=== PATIENT | female | born 1965 | race Caucasian/White ===

== ENCOUNTER 2021-02-04 18:00 | Inpatient (IN) | payer BC ==
[~2021-02-04] VITALS: Ht 149.9 cm; Wt 59.3 kg
[2021-02-04 18:46] LABS: BASOPHILS # (AUTO) 0.1 X10'3 (0-0.2); BASOPHILS % (AUTO) 1.3 % (0-1); EOSINOPHILS # (AUTO) 0.1 X10'3 (0-0.9); HEMATOCRIT 22.7 % (35.0-45.0); HEMOGLOBIN 7.3 g/dl (12.0-16.0); MEAN CORPUSCULAR HEMOGLOBIN 26.4 PG (27.0-31.0); MEAN CORPUSCULAR HGB CONC 32.2 g/dL (33.0-36.5); MEAN CORPUSCULAR VOLUME 82.1 FL (78-98); MEAN PLATELET VOLUME 6.4 FL (7.4-10.4); MONOCYTES # (AUTO) 0.7 X10'3 (0-0.9); MONOCYTES % (AUTO) 8.1 % (2-12); NEUTROPHILS # (AUTO) 6.7 X10'3 (1.8-7.7); NEUTROPHILS % (AUTO) 77.6 % (42-75); PLATELET COUNT 403 X10'3 (140-440); RED BLOOD COUNT 2.77 X10'6 (4.20-5.60); RED CELL DISTRIBUTION WIDTH 19.3 % (11.5-14.5); WHITE BLOOD COUNT 8.6 X10'3 (4.5-11.0)
[2021-02-04 19:03] LABS: ALANINE AMINOTRANSFERASE 13 U/L (12-78); ALBUMIN 2.3 G/DL (3.4-5.0); ALBUMIN/GLOBULIN RATIO 0.6 (1.1-1.5); ALKALINE PHOSPHATASE 91 IU/L (46-116); ANION GAP 15 (8-16); ASPARTATE AMINO TRANSFERASE 17 U/L (10-37); BILIRUBIN,TOTAL 0.5 MG/DL (0.1-1.0); BLOOD UREA NITROGEN 34 MG/DL (7-18); BUN/CREATININE RATIO 11.8 (6.6-38.0); CALCIUM 8.4 MG/DL (8.5-10.1); CHLORIDE 108 MMOL/L (99-107); CREATININE 2.88 MG/DL (0.40-0.90); GLUCOSE 97 MG/DL (70-104); POTASSIUM 3.5 MMOL/L (3.5-5.1); SODIUM 141 MMOL/L (135-145); TOTAL CARBON DIOXIDE 18.4 MMOL/L (24-32); TOTAL PROTEIN 6.3 G/DL (6.4-8.2); eGFR 17 ML/MIN
[2021-02-04] MEDS ORDERED: nitroGLYCERIN-Tridil 50MG/D5W 250 ML IV ONE (19:05)
[2021-02-04 19:11] LABS: ANISOCYTOSIS 2+; HYPOCHROMASIA 1+; PLATELET ESTIMATE NORMAL
[2021-02-04] MEDS ORDERED: magnesium 2GM in 50ml NS 50 ML IV PRN (19:20)
[2021-02-04] MEDS ORDERED: potassium Cl 20 mEq SR tablet PO PRN ×2 (19:20)
[2021-02-04] MEDS ORDERED: magnesium 4gm in 100ml NS 100 ML IV PRN (19:20)
[2021-02-04] MEDS ORDERED: magnesium Cl slow-release 64mg tablet PO PRN (19:20)
[2021-02-04] MEDS ORDERED: mag hydrox/Alum hydrox/simeth 30ml oral suspension PO PRN (19:20)
[2021-02-04] MEDS ORDERED: magnesium hydroxide 30ml (MOM) UD suspension PO PRN (19:20)
[2021-02-04] MEDS ORDERED: acetaminophen 325mg tablet PO PRN (19:20)
[2021-02-04] MEDS ORDERED: morphine 2 MG/ML inj. syringe IV PRN (19:20)
[2021-02-04] MEDS ORDERED: potassium Cl 40MEQ/1/2NS 520ml 520 ML IV PRN ×2 (19:20)
[2021-02-04] MEDS ORDERED: CARV25TA2 PO (19:54)
[2021-02-04] MEDS ORDERED: METO5TAB7 PO (19:54)
[2021-02-04] MEDS ORDERED: MECL-159 PO (19:54)
[2021-02-04] MEDS ORDERED: HYDR100T27 PO (19:54)
[2021-02-04] MEDS ORDERED: ISOS120T13 PO (19:54)
[2021-02-04] MEDS ORDERED: BUPR100T7 PO (19:54)
[2021-02-04] MEDS ORDERED: CYCL-1 PO (19:54)
[2021-02-04] MEDS ORDERED: ATOR10TA70 PO (19:54)
[2021-02-04] MEDS ORDERED: LISI10TA27 PO (19:54)
[2021-02-04] MEDS ORDERED: BUPR300T86 PO (19:54)
[2021-02-04] MEDS: K and/or MAG REPLACEMENT MC SCH (19:56)
[2021-02-04 21:00] VITALS: BP 193/115
--- NOTE | 2021-02-04 21:00 | NUR ---
Received pt from ER, oriented to room, call light and floor procedures. Blood pressure elevated, all other vitals WNL. Room air RR 20. Afebrile and able to ambulate from gurney to bed.
[2021-02-04 22:00] VITALS: BP 181/108
[2021-02-04] MEDS: hydrALAZINE 20mg/ml inj. IV PRN (22:15)
[2021-02-04] MEDS ORDERED: furosemide inj 100 MG in normal saline 100ml IV soln 90 ML IV SCH (23:40)
[2021-02-05] VITALS (9 sets, daily range): BP systolic 181–196; BP diastolic 17–127
[2021-02-05] MEDS ORDERED: furosemide inj 100 MG in normal saline 100ml IV soln 90 ML IV SCH (00:54)
[2021-02-05 01:53] LABS: BASOPHILS # (AUTO) 0.1 X10'3 (0-0.2); EOSINOPHILS # (AUTO) 0.1 X10'3 (0-0.9); EOSINOPHILS % (AUTO) 1.1 % (0-6); HEMOGLOBIN 7.2 g/dl (12.0-16.0); LYMPHOCYTES # (AUTO) 0.8 X10'3 (1.1-4.8); LYMPHOCYTES % (AUTO) 9.4 % (21-51); MEAN CORPUSCULAR HEMOGLOBIN 26.8 PG (27.0-31.0); MEAN CORPUSCULAR HGB CONC 32.5 g/dL (33.0-36.5); MEAN CORPUSCULAR VOLUME 82.4 FL (78-98); MEAN PLATELET VOLUME 6.5 FL (7.4-10.4); MONOCYTES # (AUTO) 0.5 X10'3 (0-0.9); MONOCYTES % (AUTO) 6.2 % (2-12); NEUTROPHILS # (AUTO) 7.2 X10'3 (1.8-7.7); NEUTROPHILS % (AUTO) 82.3 % (42-75); PLATELET COUNT 373 X10'3 (140-440); RED BLOOD COUNT 2.67 X10'6 (4.20-5.60); WHITE BLOOD COUNT 8.7 X10'3 (4.5-11.0)
[2021-02-05 02:04] LABS: ALBUMIN 2.2 G/DL (3.4-5.0); ALBUMIN/GLOBULIN RATIO 0.6 (1.1-1.5); ANION GAP 11 (8-16); ASPARTATE AMINO TRANSFERASE 20 U/L (10-37); BILIRUBIN,TOTAL 0.4 MG/DL (0.1-1.0); BLOOD UREA NITROGEN 36 MG/DL (7-18); BUN/CREATININE RATIO 12.2 (6.6-38.0); CALCIUM 8.2 MG/DL (8.5-10.1); CHLORIDE 108 MMOL/L (99-107); CREATININE 2.96 MG/DL (0.40-0.90); GLUCOSE 223 MG/DL (70-104); MAGNESIUM 2.3 MG/DL (1.5-2.4); POTASSIUM 3.6 MMOL/L (3.5-5.1); SODIUM 140 MMOL/L (135-145); TOTAL CARBON DIOXIDE 20.9 MMOL/L (24-32); TOTAL PROTEIN 6.1 G/DL (6.4-8.2); eGFR 16 ML/MIN
[2021-02-05 02:05] LABS: ALANINE AMINOTRANSFERASE 14 U/L (12-78); ALKALINE PHOSPHATASE 89 IU/L (46-116)
--- NOTE | 2021-02-05 02:09 | NUR ---
notified PAGER ID: [phone] MESSAGE: [phone] admit to [facility] @8565 pt c/o vertigo dizziness takes 25mg PO TID prn Meclizine at home. She is requesting to have it here please? H&H 7.2 & 22 Emiliano [id number]
[2021-02-05] MEDS: meclizine 12.5mg tablet PO PRN ×2 (02:21→12:03)
[2021-02-05] MEDS: hydrALAZINE 20mg/ml inj. IV PRN ×3 (05:32→17:45)
--- NOTE | 2021-02-05 06:15 | NUR ---
Patient in room PCU 3027. I have received report from MANDA Cummings and had the opportunity to ask questions and assume patient care.
--- NOTE | 2021-02-05 06:20 | NUR ---
Problems reprioritized. Patient report given, questions answered & plan of care reviewed with Deidra HOLMAN.
--- NOTE | 2021-02-05 06:37 | NUR ---
Patient in room PCU 3027. I have received report from German HOLMAN and had the opportunity to ask questions and assume patient care.
[2021-02-05 07:24] LABS: HEMATOCRIT 24.2 % (35.0-45.0); HEMOGLOBIN 7.6 g/dl (12.0-16.0); MEAN CORPUSCULAR HEMOGLOBIN 26.5 PG (27.0-31.0); MEAN CORPUSCULAR HGB CONC 31.6 g/dL (33.0-36.5); MEAN CORPUSCULAR VOLUME 83.7 FL (78-98); MEAN PLATELET VOLUME 6.5 FL (7.4-10.4); PLATELET COUNT 431 X10'3 (140-440); RED BLOOD COUNT 2.89 X10'6 (4.20-5.60); RED CELL DISTRIBUTION WIDTH 19.8 % (11.5-14.5); WHITE BLOOD COUNT 8.9 X10'3 (4.5-11.0)
[2021-02-05] MEDS: buPROPion SR 150mg tablet PO SCH ×2 (07:55→20:05)
[2021-02-05] MEDS: isosorbide mononitrate 30mg tab.SR.24H PO SCH ×2 (07:56→20:05)
[2021-02-05] MEDS: atorvastatin 10mg tablet PO SCH (07:56)
[2021-02-05] MEDS: K and/or MAG REPLACEMENT MC SCH ×2 (08:00→20:00)
--- NOTE | 2021-02-05 08:01 | NUR ---
PAGER ID: [phone] MESSAGE: Pt Cheryl Lugo needs her home BP meds put on LAWRENCE, her BP 192/127, had hydralazine at 0530, can't give until 1130. No other meds on board. Pls advise, Deidra CASH
[2021-02-05] MEDS ORDERED: hyDRALAzine 10mg tablet PO SCH (08:20)
[2021-02-05] MEDS ORDERED: hydrALAZINE 20mg/ml inj. IV ONE (08:20)
[2021-02-05] MEDS: lisinopril 10 MG tablet PO SCH (08:20)
--- NOTE | 2021-02-05 08:21 | NUR ---
New orders from Dr. Azul to resart home BP meds
[2021-02-05 08:45] LABS: OCCULT BLOOD STOOL NEGATIVE (Neg)
[2021-02-05] MEDS: hydrALAZINE 25 MG tablet PO SCH ×2 (13:00→20:05)
[2021-02-05 13:24] LABS: TOTAL PROTEIN,URINE RANDOM 644.4 MG/DL
[2021-02-05] MEDS: ondansetron/PF 4mg/2ml inj IV PRN (15:08)
--- NOTE | 2021-02-05 15:15 | NUR ---
MESSAGE: Pt Cheryl Lugo 2386A BP is not going down with hydralazine, sustaining high, latest 187/111, HR 110. Should we try a clonidine push? Pls advise, Deidra CASH
--- NOTE | 2021-02-05 16:05 | NUR ---
Discovered pump for Lasix drip was set to wrong concentration in drug library, resulting in patient receiving 1 ml/hr instead of 10 ml/hr. Fixed the rate on pump, contacted pharmacist to inform, and reported to charge nurse. Will continue to monitor.
[2021-02-05] MEDS ORDERED: amLODIPine 5mg tablet PO ONE (16:15)
--- NOTE | 2021-02-05 18:08 | NUR ---
Problems reprioritized. Patient report given, questions answered & plan of care reviewed with MANDA Porter. Patient stable at time of transfer.
--- NOTE | 2021-02-05 18:08 | NUR ---
Problems reprioritized. Patient report given, questions answered & plan of care reviewed with Emiliano HOLMAN.
[2021-02-05 18:14] LABS: ALBUMIN 2.3 G/DL (3.4-5.0); ANION GAP 12 (8-16); BLOOD UREA NITROGEN 39 MG/DL (7-18); BUN/CREATININE RATIO 13.2 (6.6-38.0); CALCIUM 8.5 MG/DL (8.5-10.1); CHLORIDE 107 MMOL/L (99-107); CREATININE 2.95 MG/DL (0.40-0.90); GLUCOSE 135 MG/DL (70-104); SODIUM 140 MMOL/L (135-145); TOTAL CARBON DIOXIDE 21.5 MMOL/L (24-32); eGFR 17 ML/MIN
[2021-02-05 18:45] LABS: PHOSPHORUS 5.7 MG/DL (2.3-4.5)
[2021-02-06] VITALS (13 sets, daily range): BP systolic 144–181; BP diastolic 94–117
[2021-02-06 01:46] LABS: BASOPHILS # (AUTO) 0.1 X10'3 (0-0.2); BASOPHILS % (AUTO) 0.9 % (0-1); EOSINOPHILS # (AUTO) 0.1 X10'3 (0-0.9); EOSINOPHILS % (AUTO) 1.3 % (0-6); LYMPHOCYTES % (AUTO) 10.4 % (21-51); MEAN CORPUSCULAR HGB CONC 33.4 g/dL (33.0-36.5); MEAN CORPUSCULAR VOLUME 80.9 FL (78-98); MEAN PLATELET VOLUME 6.2 FL (7.4-10.4); MONOCYTES # (AUTO) 0.8 X10'3 (0-0.9); MONOCYTES % (AUTO) 8.9 % (2-12); NEUTROPHILS # (AUTO) 7.3 X10'3 (1.8-7.7); NEUTROPHILS % (AUTO) 78.5 % (42-75); PLATELET COUNT 348 X10'3 (140-440); RED BLOOD COUNT 2.54 X10'6 (4.20-5.60); RED CELL DISTRIBUTION WIDTH 19.3 % (11.5-14.5); WHITE BLOOD COUNT 9.2 X10'3 (4.5-11.0)
[2021-02-06 01:55] LABS: HEMATOCRIT 20.5 % (35.0-45.0); HEMOGLOBIN 6.9 g/dl (12.0-16.0)
[2021-02-06 01:58] LABS: ALANINE AMINOTRANSFERASE 17 U/L (12-78); ALBUMIN 2.1 G/DL (3.4-5.0); ALBUMIN/GLOBULIN RATIO 0.5 (1.1-1.5); ALKALINE PHOSPHATASE 79 IU/L (46-116); ANION GAP 13 (8-16); ASPARTATE AMINO TRANSFERASE 13 U/L (10-37); BILIRUBIN,TOTAL 0.3 MG/DL (0.1-1.0); BLOOD UREA NITROGEN 39 MG/DL (7-18); BUN/CREATININE RATIO 11.7 (6.6-38.0); CALCIUM 8.1 MG/DL (8.5-10.1); CHLORIDE 106 MMOL/L (99-107); CREATININE 3.33 MG/DL (0.40-0.90); GLUCOSE 128 MG/DL (70-104); MAGNESIUM 2.1 MG/DL (1.5-2.4); POTASSIUM 3.6 MMOL/L (3.5-5.1); SODIUM 139 MMOL/L (135-145); TOTAL CARBON DIOXIDE 20.5 MMOL/L (24-32); TOTAL PROTEIN 6.1 G/DL (6.4-8.2); eGFR 14 ML/MIN
[2021-02-06 02:05] LABS: PHOSPHORUS 5.4 MG/DL (2.3-4.5)
--- NOTE | 2021-02-06 02:43 | NUR ---
Critical HGB-6.9 repored by Lab. han has been paged and am waiting for further instructions.
[2021-02-06 03:05] LABS: ANISOCYTOSIS 2+; PLATELET ESTIMATE NORMAL
[2021-02-06 03:06] LABS: HYPOCHROMASIA 1+; SPHEROCYTES FEW
[2021-02-06] MEDS: hydrALAZINE 20mg/ml inj. IV PRN ×3 (03:17→17:53)
[2021-02-06] MEDS ORDERED: metoprolol tartrate 1mg/ml inj IV ONE (04:20)
--- NOTE | 2021-02-06 06:05 | NUR ---
Patient in room PCU 3027. I have received report from AMNDA Tafoya and had the opportunity to ask questions and assume patient care.
--- NOTE | 2021-02-06 06:29 | NUR ---
Patient in room PCU 3027. I have received report from Michelet HOLMAN and had the opportunity to ask questions and assume patient care.
[2021-02-06] MEDS: buPROPion SR 150mg tablet PO SCH ×2 (07:39→20:22)
[2021-02-06] MEDS: isosorbide mononitrate 30mg tab.SR.24H PO SCH ×2 (07:39→20:22)
[2021-02-06] MEDS: hydrALAZINE 25 MG tablet PO SCH ×3 (07:40→20:22)
[2021-02-06] MEDS: atorvastatin 10mg tablet PO SCH (07:40)
[2021-02-06] MEDS: lisinopril 10 MG tablet PO SCH (08:00)
[2021-02-06] MEDS: K and/or MAG REPLACEMENT MC SCH ×2 (08:00→20:00)
--- NOTE | 2021-02-06 08:22 | NUR ---
Page to Jorge Alberto PAGER ID: [phone] MESSAGE: Bryson Lugo 3027A- H&H 6., would you like me to infuse blood today? - [facility] [phone]
[2021-02-06 09:46] LABS: COMPLEMENT C3, SERUM 114 mg/dL (82-167); COMPLEMENT C4, SERUM 23 mg/dL (12-38)
[2021-02-06 13:14] LABS: HEMATOCRIT 27.7 % (35.0-45.0); MEAN CORPUSCULAR HEMOGLOBIN 27.4 PG (27.0-31.0); MEAN CORPUSCULAR HGB CONC 32.4 g/dL (33.0-36.5); MEAN CORPUSCULAR VOLUME 84.6 FL (78-98); MEAN PLATELET VOLUME 6.3 FL (7.4-10.4); PLATELET COUNT 380 X10'3 (140-440); RED BLOOD COUNT 3.27 X10'6 (4.20-5.60); RED CELL DISTRIBUTION WIDTH 18.9 % (11.5-14.5); WHITE BLOOD COUNT 9.5 X10'3 (4.5-11.0)
[2021-02-06 16:22] LABS: A/G RATIO 0.7 (0.7-1.7); ALBUMIN 2.5 g/dL (2.9-4.4); ANTINUCLEAR ANTIBODIES Positive (Negative); BETA GLOBULIN 1.1 g/dL (0.7-1.3); GAMMA GLOBULIN 1.1 g/dL (0.4-1.8); GLOBULIN, TOTAL 3.4 g/dL (2.2-3.9); HEPATITIS C ANTIBODY <0.1 s/co ratio (0.0-0.9); M-SPIKE Not Observed g/dL (Not Observed); PROTEIN, TOTAL, SERUM 5.9 g/dL (6.0-8.5)
--- NOTE | 2021-02-06 18:10 | NUR ---
patient report received from Mariama, all discussions were done
--- NOTE | 2021-02-06 18:16 | NUR ---
Problems reprioritized. Patient report given, questions answered & plan of care reviewed with MANDA APPIAH. PATIENT STABLE AT TIME OF TRANSFER.
[2021-02-06] MEDS: furosemide 40mg/4ml inj IV SCH (20:22)
[2021-02-07] VITALS (7 sets, daily range): BP systolic 156–197; BP diastolic 95–119
[2021-02-07] MEDS: hydrALAZINE 20mg/ml inj. IV PRN ×2 (03:55→13:00)
[2021-02-07 06:24] LABS: BASOPHILS # (AUTO) 0.1 X10'3 (0-0.2); BASOPHILS % (AUTO) 0.6 % (0-1); EOSINOPHILS # (AUTO) 0.1 X10'3 (0-0.9); HEMATOCRIT 28.4 % (35.0-45.0); HEMOGLOBIN 9.3 g/dl (12.0-16.0); LYMPHOCYTES # (AUTO) 0.7 X10'3 (1.1-4.8); LYMPHOCYTES % (AUTO) 6.5 % (21-51); MEAN CORPUSCULAR HEMOGLOBIN 27.6 PG (27.0-31.0); MEAN CORPUSCULAR HGB CONC 32.7 g/dL (33.0-36.5); MEAN CORPUSCULAR VOLUME 84.4 FL (78-98); MEAN PLATELET VOLUME 6.6 FL (7.4-10.4); MONOCYTES # (AUTO) 0.8 X10'3 (0-0.9); MONOCYTES % (AUTO) 7.7 % (2-12); NEUTROPHILS # (AUTO) 8.7 X10'3 (1.8-7.7); NEUTROPHILS % (AUTO) 84.2 % (42-75); PLATELET COUNT 329 X10'3 (140-440); RED BLOOD COUNT 3.36 X10'6 (4.20-5.60); RED CELL DISTRIBUTION WIDTH 18.9 % (11.5-14.5); WHITE BLOOD COUNT 10.4 X10'3 (4.5-11.0)
--- NOTE | 2021-02-07 06:25 | NUR ---
Patient in room PCU 3027. I have received report from MANDA Tafoya and had the opportunity to ask questions and assume patient care.
--- NOTE | 2021-02-07 06:28 | NUR ---
Patient in room PCU 3027. I have received report from Esteban HOLMAN and had the opportunity to ask questions and assume patient care.
[2021-02-07 06:46] LABS: ALANINE AMINOTRANSFERASE 12 U/L (12-78); ALBUMIN 2.4 G/DL (3.4-5.0); ALBUMIN/GLOBULIN RATIO 0.6 (1.1-1.5); ALKALINE PHOSPHATASE 88 IU/L (46-116); ANION GAP 12 (8-16); ASPARTATE AMINO TRANSFERASE 19 U/L (10-37); BILIRUBIN,TOTAL 0.4 MG/DL (0.1-1.0); BLOOD UREA NITROGEN 39 MG/DL (7-18); BUN/CREATININE RATIO 12.5 (6.6-38.0); CALCIUM 8.8 MG/DL (8.5-10.1); CHLORIDE 106 MMOL/L (99-107); CREATININE 3.12 MG/DL (0.40-0.90); GLUCOSE 112 MG/DL (70-104); MAGNESIUM 2.3 MG/DL (1.5-2.4); POTASSIUM 3.8 MMOL/L (3.5-5.1); SODIUM 139 MMOL/L (135-145); TOTAL CARBON DIOXIDE 20.9 MMOL/L (24-32); TOTAL PROTEIN 6.5 G/DL (6.4-8.2); eGFR 15 ML/MIN
[2021-02-07] MEDS: buPROPion SR 150mg tablet PO SCH ×2 (07:11→22:21)
[2021-02-07] MEDS: atorvastatin 10mg tablet PO SCH (07:11)
[2021-02-07] MEDS: isosorbide mononitrate 30mg tab.SR.24H PO SCH ×2 (07:12→22:21)
[2021-02-07] MEDS: hydrALAZINE 25 MG tablet PO SCH ×3 (07:12→22:21)
[2021-02-07] MEDS: furosemide 40mg/4ml inj IV SCH ×2 (07:12→22:20)
[2021-02-07] MEDS: metolazone 2.5mg tablet PO SCH (07:12)
[2021-02-07] MEDS: ondansetron/PF 4mg/2ml inj IV PRN (08:01)
[2021-02-07 08:03] LABS: ANISOCYTOSIS 2+; PLATELET ESTIMATE NORMAL
[2021-02-07] MEDS: K and/or MAG REPLACEMENT MC SCH ×2 (08:22→20:00)
--- NOTE | 2021-02-07 13:33 | NUR ---
Page to Jorge Alberto PAGER ID: [phone] MESSAGE: Pt. Cheryl Lugo [id number]. Kidney US is complete, how can we notify Dr Mims? He also recommended IV Fe, do you want that? ECHO from [facility] in chart. What's our plan? Phos elevated @ 5.4, GFR stabilizing, Pls advise, Deidra [phone]
--- NOTE | 2021-02-07 15:44 | NUR ---
Page to Jorge Alberto PAGER ID: [phone] MESSAGE: All medical records are here finally for Cheryl Lugo [id number] from [facility]: Cathie MCCLENDON from 2018, H&P, and notes, in her chart. She was on Coreg 25mg BID. Deidra Alcala
--- NOTE | 2021-02-07 16:12 | NUR ---
MESSAGE LEFT FOR DR. MASON AT [phone] TO CLARIFY ORDERS AND PLAN OF CARE.
--- NOTE | 2021-02-07 18:23 | NUR ---
Problems reprioritized. Patient report given, questions answered & plan of care reviewed with MANDA Trevino. Patient stable at time of transfer.
--- NOTE | 2021-02-07 20:00 | NUR ---
received report from MANDA Gay. PATIENT alert and oriented. blood pressure high. prn blood medication given during shift with no improvement. MD aware. MD give order for kidney biopsy this am.patient being npo after midnight for possible procedure. order need to be clarify as quantity was not clarify while receiving order. md did not specify . morning nurse aware.no acute distress at this time keep monitoring
[2021-02-08] VITALS (8 sets, daily range): BP systolic 145–189; BP diastolic 86–115
[2021-02-08] MEDS: hydrALAZINE 20mg/ml inj. IV PRN ×3 (04:29→17:51)
--- NOTE | 2021-02-08 06:29 | NUR ---
Problems reprioritized. Patient report given, questions answered & plan of care reviewed with morning nurse. Patient stable at time of transfer.
[2021-02-08] MEDS: metolazone 2.5mg tablet PO SCH (07:37)
[2021-02-08] MEDS: atorvastatin 10mg tablet PO SCH (07:38)
[2021-02-08] MEDS: isosorbide mononitrate 30mg tab.SR.24H PO SCH ×2 (07:38→21:10)
[2021-02-08] MEDS: buPROPion SR 150mg tablet PO SCH ×2 (07:38→21:10)
[2021-02-08] MEDS: furosemide 40mg/4ml inj IV SCH ×2 (07:39→21:10)
[2021-02-08] MEDS: hydrALAZINE 25 MG tablet PO SCH ×3 (07:39→21:18)
[2021-02-08] MEDS: K and/or MAG REPLACEMENT MC SCH ×2 (08:00→20:00)
[2021-02-08 09:09] LABS: BASOPHILS # (AUTO) 0.1 X10'3 (0-0.2); BASOPHILS % (AUTO) 0.8 % (0-1); EOSINOPHILS # (AUTO) 0.1 X10'3 (0-0.9); EOSINOPHILS % (AUTO) 1.2 % (0-6); HEMATOCRIT 27.1 % (35.0-45.0); HEMOGLOBIN 8.9 g/dl (12.0-16.0); LYMPHOCYTES # (AUTO) 0.7 X10'3 (1.1-4.8); LYMPHOCYTES % (AUTO) 7.6 % (21-51); MEAN CORPUSCULAR HEMOGLOBIN 27.5 PG (27.0-31.0); MEAN CORPUSCULAR HGB CONC 32.7 g/dL (33.0-36.5); MEAN CORPUSCULAR VOLUME 84.1 FL (78-98); MEAN PLATELET VOLUME 6.3 FL (7.4-10.4); MONOCYTES # (AUTO) 0.8 X10'3 (0-0.9); MONOCYTES % (AUTO) 9.1 % (2-12); NEUTROPHILS % (AUTO) 81.3 % (42-75); PLATELET COUNT 294 X10'3 (140-440); RED BLOOD COUNT 3.22 X10'6 (4.20-5.60); RED CELL DISTRIBUTION WIDTH 19.1 % (11.5-14.5); WHITE BLOOD COUNT 8.6 X10'3 (4.5-11.0)
[2021-02-08 09:18] LABS: PARTIAL THROMBOPLASTIN TIME 27 SECONDS (22-32)
--- NOTE | 2021-02-08 09:30 | NUR ---
Initial: Pt admit with CHF exacerbation, HTN, and DOROTHY/CKD. Pt on a heart healthy diet documented with 75-100% PO intake throughout LOS meeting estimated nutrient needs. Noted that last Phos on 02/06 was elevated at 5.4 mg/dL, down from 5.7 mg/dL 02/05. Per RN notes MD has been notified of elevated Phos. Carboy Filler following, no indication for HD at this time per MD note. LBM 02/07. No nutrition intervention warranted at this time. Will continue to follow and make recommendations as appropriate. Recommendations: 1) Continue heart healthy diet 2) Monitor renal labs and need for renal diet 3) Consider routine Phos lab draws; may benefit from Phos binder with MD approval if remains elevated with DOROTHY/CKD 4) Bowel care per rx 5) Scaled weights per rx Addendum: 02/08/21 at [address] Amended: Links added.
[2021-02-08 09:59] LABS: ALANINE AMINOTRANSFERASE 16 U/L (12-78); ALBUMIN 2.3 G/DL (3.4-5.0); ALBUMIN/GLOBULIN RATIO 0.6 (1.1-1.5); ALKALINE PHOSPHATASE 80 IU/L (46-116); ANION GAP 11 (8-16); ASPARTATE AMINO TRANSFERASE 17 U/L (10-37); BILIRUBIN,TOTAL 0.4 MG/DL (0.1-1.0); BLOOD UREA NITROGEN 41 MG/DL (7-18); BUN/CREATININE RATIO 13.4 (6.6-38.0); CALCIUM 8.4 MG/DL (8.5-10.1); CHLORIDE 104 MMOL/L (99-107); CREATININE 3.06 MG/DL (0.40-0.90); GLUCOSE 119 MG/DL (70-104); MAGNESIUM 2.1 MG/DL (1.5-2.4); POTASSIUM 3.8 MMOL/L (3.5-5.1); SODIUM 137 MMOL/L (135-145); TOTAL CARBON DIOXIDE 21.7 MMOL/L (24-32); TOTAL PROTEIN 6.4 G/DL (6.4-8.2); eGFR 16 ML/MIN
--- NOTE | 2021-02-08 12:08 | NUR ---
Spoke with Candace in Angio, she will call and give MDI pt's information to schedule outpatient Renal biopsy.
[2021-02-08] MEDS: labetalol 100mg tablet PO SCH ×2 (12:09→21:10)
--- NOTE | 2021-02-08 18:16 | NUR ---
Problems reprioritized. Patient report given, questions answered & plan of care reviewed with MANDA Hurtado. Pt sitting up in bed eating dinner at change of shift. No signs of distress at this time. All pt needs met at this time.
--- NOTE | 2021-02-08 18:26 | NUR ---
Problems reprioritized. Patient report given, questions answered & plan of care reviewed with MANDA Philip. Pt resting comfortably, no signs of distress, all pt needs met at this time.
[2021-02-09 02:00] VITALS: BP 149/93
[2021-02-09 05:48] LABS: ALBUMIN, UR 51.5 % (.); ALPHA-1-GLOBULIN,UR 10.4 % (.); ALPHA-2-GLOBULIN,UR 11.7 % (.); BETA GLOBULIN, UR 16.7 % (.); GAMMA GLOBULIN,UR 9.8 % (.); PROTEIN,TOTAL,URINE 631.2 mg/dL (Not Estab.)
[2021-02-09 05:56] LABS: BASOPHILS # (AUTO) 0.1 X10'3 (0-0.2); BASOPHILS % (AUTO) 1.1 % (0-1); EOSINOPHILS # (AUTO) 0.2 X10'3 (0-0.9); EOSINOPHILS % (AUTO) 2.7 % (0-6); HEMATOCRIT 24.9 % (35.0-45.0); HEMOGLOBIN 7.9 g/dl (12.0-16.0); LYMPHOCYTES # (AUTO) 0.7 X10'3 (1.1-4.8); LYMPHOCYTES % (AUTO) 12.1 % (21-51); MEAN CORPUSCULAR HEMOGLOBIN 27.1 PG (27.0-31.0); MEAN CORPUSCULAR HGB CONC 31.7 g/dL (33.0-36.5); MEAN CORPUSCULAR VOLUME 85.6 FL (78-98); MEAN PLATELET VOLUME 6.6 FL (7.4-10.4); MONOCYTES # (AUTO) 0.7 X10'3 (0-0.9); NEUTROPHILS # (AUTO) 4.5 X10'3 (1.8-7.7); NEUTROPHILS % (AUTO) 73.1 % (42-75); PLATELET COUNT 274 X10'3 (140-440); RED BLOOD COUNT 2.91 X10'6 (4.20-5.60); RED CELL DISTRIBUTION WIDTH 19.2 % (11.5-14.5); WHITE BLOOD COUNT 6.1 X10'3 (4.5-11.0)
[2021-02-09 06:17] LABS: ALANINE AMINOTRANSFERASE 13 U/L (12-78); ALBUMIN 2.1 G/DL (3.4-5.0); ALBUMIN/GLOBULIN RATIO 0.5 (1.1-1.5); ALKALINE PHOSPHATASE 72 IU/L (46-116); ANION GAP 10 (8-16); ASPARTATE AMINO TRANSFERASE 14 U/L (10-37); BILIRUBIN,TOTAL 0.3 MG/DL (0.1-1.0); BLOOD UREA NITROGEN 47 MG/DL (7-18); BUN/CREATININE RATIO 13.7 (6.6-38.0); CALCIUM 8.3 MG/DL (8.5-10.1); CHLORIDE 104 MMOL/L (99-107); CREATININE 3.43 MG/DL (0.40-0.90); GLUCOSE 120 MG/DL (70-104); MAGNESIUM 2.3 MG/DL (1.5-2.4); SODIUM 135 MMOL/L (135-145); TOTAL CARBON DIOXIDE 20.9 MMOL/L (24-32); eGFR 14 ML/MIN
--- NOTE | 2021-02-09 06:25 | NUR ---
Problems reprioritized. Patient report given, questions answered & plan of care reviewed with MANDA KEARNEY. Pt resting comfortably at change of shift. All pt needs met at this time.
--- NOTE | 2021-02-09 06:34 | NUR ---
Patient in room PCU 3027. I have received report from MANDA Hurtado and had the opportunity to ask questions and assume patient care.
[2021-02-09 07:00] VITALS: BP 171/106
[2021-02-09] MEDS: furosemide 40mg/4ml inj IV SCH (07:45)
[2021-02-09] MEDS: labetalol 100mg tablet PO SCH ×2 (07:45→20:20)
[2021-02-09] MEDS: buPROPion SR 150mg tablet PO SCH ×2 (07:45→20:12)
[2021-02-09] MEDS: isosorbide mononitrate 30mg tab.SR.24H PO SCH ×2 (07:46→20:12)
[2021-02-09] MEDS: metolazone 2.5mg tablet PO SCH (07:47)
[2021-02-09] MEDS: atorvastatin 10mg tablet PO SCH (07:47)
[2021-02-09] MEDS: hydrALAZINE 25 MG tablet PO SCH ×3 (07:47→20:21)
[2021-02-09] MEDS: K and/or MAG REPLACEMENT MC SCH ×2 (07:47→20:00)
[2021-02-09 11:00] VITALS: BP 145/94
[2021-02-09 13:27] LABS: OCCULT BLOOD STOOL NEGATIVE (Neg)
[2021-02-09 15:00] VITALS: BP 153/92
[2021-02-09 18:00] VITALS: BP 179/111
--- NOTE | 2021-02-09 18:15 | NUR ---
Problems reprioritized. Patient report given, questions answered & plan of care reviewed with MANDA Beltran. All pt needs met at this time.
--- NOTE | 2021-02-09 18:40 | NUR ---
Patient in room PCU 3027. I have received report from Korin OHLMAN and had the opportunity to ask questions and assume patient care.
[2021-02-09] MEDS: bumetanide 1mg tablet PO SCH (20:12)
[2021-02-09 22:00] VITALS: BP 153/103
[2021-02-10 02:00] VITALS: BP 165/109
[2021-02-10] MEDS: hydrALAZINE 20mg/ml inj. IV PRN (05:29)
--- NOTE | 2021-02-10 06:12 | NUR ---
Problems reprioritized. Patient report given, questions answered & plan of care reviewed with CAIO HOLMAN.
--- NOTE | 2021-02-10 06:15 | NUR ---
Patient in room PCU 3027. I have received report from MANDA Troncoso and had the opportunity to ask questions and assume patient care.
[2021-02-10 07:00] VITALS: BP 172/108
[2021-02-10] MEDS: K and/or MAG REPLACEMENT MC SCH (08:00)
[2021-02-10] MEDS: hydrALAZINE 25 MG tablet PO SCH ×2 (08:02→13:47)
[2021-02-10] MEDS: labetalol 100mg tablet PO SCH (08:02)
[2021-02-10] MEDS: isosorbide mononitrate 30mg tab.SR.24H PO SCH (08:02)
[2021-02-10] MEDS: bumetanide 1mg tablet PO SCH (08:03)
[2021-02-10] MEDS: buPROPion SR 150mg tablet PO SCH (08:03)
[2021-02-10] MEDS: atorvastatin 10mg tablet PO SCH (08:03)
[2021-02-10] MEDS: metolazone 2.5mg tablet PO SCH (08:06)
[2021-02-10 11:00] VITALS: BP 139/89
[2021-02-10] MEDS ORDERED: BUME1TAB8 PO (11:56)
[2021-02-10] MEDS ORDERED: LABE100T5 PO (11:56)
[2021-02-10] MEDS ORDERED: ZAR2.5T PO (11:56)
--- NOTE | 2021-02-10 13:53 | NUR ---
Patient ok to discharge per MD. VSS. Patient was able to dress self and collect all personal items. PIV removed and tele box removed and returned. ALL medications and follow ups when educated on and patient was able to understand the importance of following up. Patient was escorted via wheelchair to the main lobby where a family vehicle met het.
[2021-02-10 13:56] LABS: ALANINE AMINOTRANSFERASE 15 U/L (12-78); ALBUMIN 2.2 G/DL (3.4-5.0); ALBUMIN/GLOBULIN RATIO 0.5 (1.1-1.5); ALKALINE PHOSPHATASE 74 IU/L (46-116); ANION GAP 13 (8-16); ASPARTATE AMINO TRANSFERASE 20 U/L (10-37); BILIRUBIN,TOTAL 0.4 MG/DL (0.1-1.0); BLOOD UREA NITROGEN 51 MG/DL (7-18); BUN/CREATININE RATIO 13.6 (6.6-38.0); CALCIUM 8.4 MG/DL (8.5-10.1); CHLORIDE 102 MMOL/L (99-107); CREATININE 3.74 MG/DL (0.40-0.90); GLUCOSE 128 MG/DL (70-104); POTASSIUM 4.2 MMOL/L (3.5-5.1); SODIUM 139 MMOL/L (135-145); TOTAL CARBON DIOXIDE 23.9 MMOL/L (24-32); TOTAL PROTEIN 6.3 G/DL (6.4-8.2); eGFR 13 ML/MIN
--- NOTE | 2021-02-10 14:26 | NUR ---
Called new Rx into [facility] pharmacy in [place], [place]
== END 2021-02-10 13:53 | disposition home or self-care (01) | DRG 291 ==
LOC: ER 18:01 → ED HOLD 19:19 → PCU 3S 21:00
PROVIDERS: ADMIT Family Medicine; ATTEND Internal Medicine
PROC: 30233N1 Transfusion of Nonautologous Red Blood Cells into Peripheral Vein, Percutaneous Approach (ICD-10-PCS; principal; 2021-02-06)
DX: I13.0 Hypertensive heart and chronic kidney disease with heart failure and stage 1 through stage 4 chronic kidney disease, or unspecified chronic kidney disease (principal); J18.9 Pneumonia, unspecified organism; I50.43 Acute on chronic combined systolic (congestive) and diastolic (congestive) heart failure; J44.0 Chronic obstructive pulmonary disease with (acute) lower respiratory infection; J98.11 Atelectasis; N17.9 Acute kidney failure, unspecified; D64.9 Anemia, unspecified; F32.9 Major depressive disorder, single episode, unspecified; E78.5 Hyperlipidemia, unspecified; I08.1 Rheumatic disorders of both mitral and tricuspid valves; N18.9 Chronic kidney disease, unspecified; Z78.9 Other specified health status; Z79.899 Other long term (current) drug therapy; Z82.49 Family history of ischemic heart disease and other diseases of the circulatory system; Z83.3 Family history of diabetes mellitus; Z87.891 Personal history of nicotine dependence; Z90.49 Acquired absence of other specified parts of digestive tract; Q78.9 Osteochondrodysplasia, unspecified
CPT/HCPCS: 36415; 36430; 71045; 76775; 80053; 80069; 82272; 82570; 83735; 83880; 83970; 84155; 84156; 84165; 84166; 84300; 84484; 85008; 85025; 85027; 85576; 85610; 85651; 85730; 86038; 86160; 86803; 86885; 86900; 86901; 86920; 87081; 87207; 93005; 93308; 96365; 99285; G0378; J0360; J1940; J2405; J3490; J8597; P9016

== ENCOUNTER 2021-04-03 11:03 | Inpatient (IN) | payer BC ==
[2021-04-03] VITALS (10 sets, daily range): BP systolic 120–194; BP diastolic 75–133
[~2021-04-03] VITALS: Ht 149.9 cm; Wt 52.2 kg
[~2021-04-03 11:03] MED LIST: ATOR10TA70 PO; BUME1TAB8 PO; BUPR300T86 PO; CYCL-1 PO; HYDR100T27 PO; ISOS120T13 PO; LABE100T5 PO; MECL-159 PO; ZAR2.5T PO
[2021-04-03 12:05] LABS: BASOPHILS # (AUTO) 0.1 X10'3 (0-0.2); BASOPHILS % (AUTO) 0.7 % (0-1); EOSINOPHILS # (AUTO) 0.1 X10'3 (0-0.9); EOSINOPHILS % (AUTO) 0.8 % (0-6); LYMPHOCYTES # (AUTO) 0.9 X10'3 (1.1-4.8); LYMPHOCYTES % (AUTO) 7.8 % (21-51); MEAN CORPUSCULAR HEMOGLOBIN 27.7 PG (27.0-31.0); MEAN CORPUSCULAR HGB CONC 32.5 g/dL (33.0-36.5); MEAN CORPUSCULAR VOLUME 85.1 FL (78-98); MEAN PLATELET VOLUME 5.7 FL (7.4-10.4); MONOCYTES # (AUTO) 0.7 X10'3 (0-0.9); MONOCYTES % (AUTO) 6.1 % (2-12); NEUTROPHILS # (AUTO) 9.4 X10'3 (1.8-7.7); NEUTROPHILS % (AUTO) 84.6 % (42-75); PLATELET COUNT 333 X10'3 (140-440); RED BLOOD COUNT 2.26 X10'6 (4.20-5.60); RED CELL DISTRIBUTION WIDTH 17.1 % (11.5-14.5); WHITE BLOOD COUNT 11.2 X10'3 (4.5-11.0)
[2021-04-03 12:07] LABS: HEMOGLOBIN 6.3 g/dl (12.0-16.0)
[2021-04-03 12:08] LABS: HEMATOCRIT 19.2 % (35.0-45.0)
[2021-04-03 12:18] LABS: ALANINE AMINOTRANSFERASE 26 U/L (12-78); ALBUMIN 2.3 G/DL (3.4-5.0); ALBUMIN/GLOBULIN RATIO 0.6 (1.1-1.5); ALKALINE PHOSPHATASE 89 IU/L (46-116); ANION GAP 13 (8-16); ASPARTATE AMINO TRANSFERASE 27 U/L (10-37); BILIRUBIN,TOTAL 0.4 MG/DL (0.1-1.0); BLOOD UREA NITROGEN 60 MG/DL (7-18); BUN/CREATININE RATIO 14.7 (6.6-38.0); CALCIUM 7.8 MG/DL (8.5-10.1); CHLORIDE 101 MMOL/L (99-107); CREATININE 4.08 MG/DL (0.40-0.90); GLUCOSE 142 MG/DL (70-104); SODIUM 137 MMOL/L (135-145); TOTAL CARBON DIOXIDE 22.6 MMOL/L (24-32); TOTAL PROTEIN 6.4 G/DL (6.4-8.2); eGFR 11 ML/MIN
[2021-04-03 12:29] LABS: PARTIAL THROMBOPLASTIN TIME 26 SECONDS (22-32)
[2021-04-03] MEDS ORDERED: POTASSIUM BICARB 20meq eff tab 20 MEQ TABLET.EFF PO STA (13:15)
[2021-04-03] MEDS ORDERED: LISI10TA27 PO (13:49)
[2021-04-03] MEDS ORDERED: METO5TAB7 PO (13:49)
[2021-04-03] MEDS ORDERED: BUME1TAB8 PO (13:49)
[2021-04-03] MEDS ORDERED: LABE100T5 PO (13:51)
[2021-04-03] MEDS ORDERED: acetaminophen 325mg tablet PO PRN ×2 (14:50)
[2021-04-03] MEDS ORDERED: HYDROcodone/acetaminophen 5mg/325mg tablet PO PRN (14:50)
[2021-04-03] MEDS ORDERED: HYDROcodone/acetaminophen 10/325mg tab PO PRN (14:50)
[2021-04-03] MEDS ORDERED: ondansetron/PF 4mg/2ml inj IV PRN (14:50)
[2021-04-03] MEDS ORDERED: magnesium 2GM in 50ml NS 50 ML IV PRN (14:50)
[2021-04-03] MEDS ORDERED: mag hydrox/Alum hydrox/simeth 30ml oral suspension PO PRN (14:50)
[2021-04-03] MEDS ORDERED: bisacodyl 10mg suppository rectal RC PRN (14:50)
[2021-04-03] MEDS ORDERED: magnesium 4gm in 100ml NS 100 ML IV PRN (14:50)
[2021-04-03] MEDS ORDERED: magnesium hydroxide 30ml (MOM) UD suspension PO PRN (14:50)
[2021-04-03] MEDS ORDERED: magnesium Cl slow-release 64mg tablet PO PRN (14:50)
--- NOTE | 2021-04-03 15:38 | NUR ---
up to bsc, bm x1 large amt. foul smell
--- NOTE | 2021-04-03 16:53 | NUR ---
b lood transfusion ended at 1600
--- NOTE | 2021-04-03 16:55 | NUR ---
bp 182/[address] galarza
[2021-04-03] MEDS ORDERED: pantoprazole 40 MG vial IV ONE (18:05)
[2021-04-03] MEDS ORDERED: meclizine 12.5mg tablet PO PRN (18:10)
--- NOTE | 2021-04-03 18:51 | NUR ---
Received report from Jamee HOLMAN in ED, patient arrived on unit. BP: 194/120 HR 99, SpO2 87% RA, complaining of shortness of breath. Called Dr. Lepe and he advised I give the anti-hypertensive PO medications due at 2100 now and to give the IV lasix 20mg due at 1999 now. He also ordered a repeat H/H lab draw.
[2021-04-03] MEDS: furosemide 20 MG/2 ML vial IV SCH (19:09)
[2021-04-03] MEDS: buPROPion SR 150mg tablet PO SCH (19:09)
[2021-04-03] MEDS: bumetanide 1mg tablet PO SCH (19:10)
[2021-04-03] MEDS: isosorbide mononitrate 30mg tab.SR.24H PO SCH (19:10)
[2021-04-03] MEDS: labetalol 100mg tablet PO SCH (19:10)
[2021-04-03] MEDS ORDERED: hydrALAZINE 25 MG tablet PO ONE (19:25)
[2021-04-03 19:48] LABS: BASOPHILS # (AUTO) 0.1 X10'3 (0-0.2); EOSINOPHILS # (AUTO) 0.1 X10'3 (0-0.9); EOSINOPHILS % (AUTO) 0.5 % (0-6); HEMATOCRIT 26.1 % (35.0-45.0); HEMOGLOBIN 8.5 g/dl (12.0-16.0); LYMPHOCYTES # (AUTO) 0.9 X10'3 (1.1-4.8); LYMPHOCYTES % (AUTO) 8.2 % (21-51); MEAN CORPUSCULAR HEMOGLOBIN 28.8 PG (27.0-31.0); MEAN CORPUSCULAR HGB CONC 32.7 g/dL (33.0-36.5); MEAN PLATELET VOLUME 5.9 FL (7.4-10.4); MONOCYTES # (AUTO) 0.7 X10'3 (0-0.9); MONOCYTES % (AUTO) 6.7 % (2-12); NEUTROPHILS % (AUTO) 83.6 % (42-75); PLATELET COUNT 330 X10'3 (140-440); RED BLOOD COUNT 2.97 X10'6 (4.20-5.60); RED CELL DISTRIBUTION WIDTH 16.8 % (11.5-14.5); WHITE BLOOD COUNT 10.7 X10'3 (4.5-11.0)
[2021-04-03] MEDS ORDERED: potassium Cl 20 mEq SR tablet PO PRN (19:50)
[2021-04-03] MEDS ORDERED: potassium Cl 40MEQ/1/2NS 520ml 520 ML IV PRN ×2 (19:50)
[2021-04-03] MEDS: K and/or MAG REPLACEMENT MC SCH (20:00)
[2021-04-03] MEDS ORDERED: heparin, porcine 5000 units/ml vial SQ SCH (20:00)
[2021-04-03] MEDS ORDERED: enalaprilat dihydrate 2.5mg/2ml vial IV ONE (20:40)
--- NOTE | 2021-04-03 20:40 | NUR ---
Called Dr. Lepe regarding sustain hypertension, BP: 183/124, HR: 93, RR 24, SpO2 96% 2L NC. ordered Vasotec 2.5 mg IV once.
[2021-04-03] MEDS: hydrALAZINE 25 MG tablet PO SCH (21:00)
[2021-04-03] MEDS: potassium Cl 20 mEq SR tablet PO PRN (21:19)
--- NOTE | 2021-04-03 22:00 | NUR ---
Patient blood pressure now 120/75, HR 83, RR 22, 95% SpO2 on 2L NC
[2021-04-04] VITALS (10 sets, daily range): BP systolic 113–156; BP diastolic 67–106
[2021-04-04] MEDS: potassium Cl 20 mEq SR tablet PO PRN ×2 (01:16→07:02)
[2021-04-04 02:04] LABS: BASOPHILS # (AUTO) 0.1 X10'3 (0-0.2); BASOPHILS % (AUTO) 0.8 % (0-1); EOSINOPHILS # (AUTO) 0.1 X10'3 (0-0.9); EOSINOPHILS % (AUTO) 0.9 % (0-6); HEMATOCRIT 22.1 % (35.0-45.0); HEMOGLOBIN 7.4 g/dl (12.0-16.0); LYMPHOCYTES # (AUTO) 0.8 X10'3 (1.1-4.8); LYMPHOCYTES % (AUTO) 8.3 % (21-51); MEAN CORPUSCULAR HGB CONC 33.7 g/dL (33.0-36.5); MEAN CORPUSCULAR VOLUME 86.2 FL (78-98); MONOCYTES # (AUTO) 0.7 X10'3 (0-0.9); MONOCYTES % (AUTO) 8.1 % (2-12); NEUTROPHILS # (AUTO) 7.5 X10'3 (1.8-7.7); NEUTROPHILS % (AUTO) 81.9 % (42-75); PLATELET COUNT 306 X10'3 (140-440); RED BLOOD COUNT 2.56 X10'6 (4.20-5.60); RED CELL DISTRIBUTION WIDTH 16.5 % (11.5-14.5); WHITE BLOOD COUNT 9.2 X10'3 (4.5-11.0)
[2021-04-04 02:15] LABS: ALANINE AMINOTRANSFERASE 26 U/L (12-78); ALBUMIN 2.1 G/DL (3.4-5.0); ALBUMIN/GLOBULIN RATIO 0.6 (1.1-1.5); ALKALINE PHOSPHATASE 84 IU/L (46-116); ANION GAP 14 (8-16); ASPARTATE AMINO TRANSFERASE 25 U/L (10-37); BILIRUBIN,TOTAL 0.4 MG/DL (0.1-1.0); BLOOD UREA NITROGEN 60 MG/DL (7-18); BUN/CREATININE RATIO 14.5 (6.6-38.0); CALCIUM 7.7 MG/DL (8.5-10.1); CHLORIDE 104 MMOL/L (99-107); CREATININE 4.14 MG/DL (0.40-0.90); GLUCOSE 170 MG/DL (70-104); POTASSIUM 3.7 MMOL/L (3.5-5.1); SODIUM 139 MMOL/L (135-145); TOTAL CARBON DIOXIDE 20.7 MMOL/L (24-32); TOTAL PROTEIN 5.8 G/DL (6.4-8.2); eGFR 11 ML/MIN
[2021-04-04 02:18] LABS: MAGNESIUM 2.5 MG/DL (1.5-2.4); PHOSPHORUS 7.9 MG/DL (2.3-4.5)
--- NOTE | 2021-04-04 06:40 | NUR ---
Problems reprioritized. Patient report given, questions answered & plan of care reviewed with Hortensia HOLMAN and Vinnie RN.
--- NOTE | 2021-04-04 06:50 | NUR ---
Patient in room PCU 3023. I have received report from Shiloh HOLMAN and had the opportunity to ask questions and assume patient care. Pt sitting up in bed, no apparent distress, npo and inquired of time for egd.
--- NOTE | 2021-04-04 06:55 | NUR ---
Patient in room PCU 3023. I have received report from Shiloh HOLMAN and had the opportunity to ask questions and assume patient care. Pt supine in bed, HOB elevated to 20 degrees, pt dietary aide and alert to voice, NPO. SRx2, CL within reach, BLL.
[2021-04-04] MEDS: K and/or MAG REPLACEMENT MC SCH ×2 (08:00→20:00)
[2021-04-04] MEDS ORDERED: pantoprazole 40 MG vial IV SCH (08:00)
[2021-04-04] MEDS: labetalol 100mg tablet PO SCH ×2 (08:20→20:26)
[2021-04-04] MEDS: isosorbide mononitrate 30mg tab.SR.24H PO SCH ×2 (08:21→20:25)
[2021-04-04] MEDS: bumetanide 1mg tablet PO SCH (08:21)
[2021-04-04] MEDS: hydrALAZINE 25 MG tablet PO SCH ×3 (08:21→20:26)
[2021-04-04] MEDS: lisinopril 10 MG tablet PO SCH (08:21)
[2021-04-04] MEDS ORDERED: LIDOcaine Viscous 15ml cup ONE (09:02)
[2021-04-04] MEDS ORDERED: MIDAZolam 1 MG/ML 5ML VIAL ONE (09:02)
[2021-04-04] MEDS ORDERED: fentaNYL/PF 50MCG/1 ML 2ML syringe ONE (09:02)
--- NOTE | 2021-04-04 09:15 | NUR ---
Pt to GI Lab. Pt went to GI lab for EDG. Dr. Nassar notified that BP meds given, lasix held until pt returns from GI lab. MD temple. discussed elevated BP. no new orders at this time.
--- NOTE | 2021-04-04 11:18 | NUR ---
Pt return from GI Lab Pt alert, sleepy. Per GI lab, no GI bleeds noted. two biopsies taken for testing for H.Pylori. pt received 1 of versed and 50 of fentanyl. pt placed on 02 due to quickly returned to mouth breathing/dosing off to sleep and sat 89%. 94% on 2LPM NC. Pt supine in bed, SRx2, CL within reach, BLL. no s/sx acute distress.
[2021-04-04 12:35] LABS: OCCULT BLOOD STOOL POSITIVE (Neg)
[2021-04-04] MEDS: furosemide 20 MG/2 ML vial IV SCH ×2 (13:25→20:25)
[2021-04-04] MEDS: buPROPion SR 150mg tablet PO SCH ×2 (13:25→20:26)
--- NOTE | 2021-04-04 15:10 | NUR ---
Dr. Hall called and said that Dr. Rosa would like to do a colonoscopy but because of patient's history of CHF, to wait a day and revisit it on Friday. We will continue to monitor patient's Hgb.
--- NOTE | 2021-04-04 15:13 | NUR ---
Paged Dr. Hall regarding patient's plan of care with colonoscopy and monitoring. PAGER ID: [phone] MESSAGE: [id number]. Cheryl Lugo. Patient is okay with the plan of care. Thank you. Jennifer HOLMAN x [phone]
--- NOTE | 2021-04-04 18:50 | NUR ---
Problems reprioritized. Patient report given, questions answered & plan of care reviewed with Shiloh HOLMAN. Pt alert to voice, SRx2, BLL, CL within each.
--- NOTE | 2021-04-04 18:56 | NUR ---
Patient in room PCU 3023. I have received report from Hortensia HOLMAN and Vinnie Rn and had the opportunity to ask questions and assume patient care. Introduced self and discussed plan of care for the evening, patient denies needs.
[2021-04-05 02:00] VITALS: BP 123/72
--- NOTE | 2021-04-05 06:19 | NUR ---
Problems reprioritized. Patient report given, questions answered & plan of care reviewed with Hortensia HOLMAN.
[2021-04-05 06:59] LABS: BASOPHILS # (AUTO) 0.1 X10'3 (0-0.2); BASOPHILS % (AUTO) 0.8 % (0-1); EOSINOPHILS # (AUTO) 0.1 X10'3 (0-0.9); EOSINOPHILS % (AUTO) 1.2 % (0-6); HEMATOCRIT 22.1 % (35.0-45.0); HEMOGLOBIN 7.3 g/dl (12.0-16.0); LYMPHOCYTES # (AUTO) 0.9 X10'3 (1.1-4.8); LYMPHOCYTES % (AUTO) 11.1 % (21-51); MEAN CORPUSCULAR HGB CONC 33.1 g/dL (33.0-36.5); MEAN CORPUSCULAR VOLUME 87.8 FL (78-98); MONOCYTES # (AUTO) 0.6 X10'3 (0-0.9); MONOCYTES % (AUTO) 7.4 % (2-12); NEUTROPHILS # (AUTO) 6.4 X10'3 (1.8-7.7); NEUTROPHILS % (AUTO) 79.5 % (42-75); PLATELET COUNT 317 X10'3 (140-440); RED BLOOD COUNT 2.52 X10'6 (4.20-5.60); RED CELL DISTRIBUTION WIDTH 16.7 % (11.5-14.5); WHITE BLOOD COUNT 8.1 X10'3 (4.5-11.0)
[2021-04-05 07:00] VITALS: BP 153/99
--- NOTE | 2021-04-05 07:04 | NUR ---
Patient in room PCU 3023. I have received report from Shiloh HOLMAN and had the opportunity to ask questions and assume patient care.pt sitting up in bed, watching TV, alert and pleasant. BLL, CL within reach, SRx2. no s/sx acute distress
[2021-04-05 07:15] LABS: ALANINE AMINOTRANSFERASE 25 U/L (12-78); ALBUMIN 2.1 G/DL (3.4-5.0); ALBUMIN/GLOBULIN RATIO 0.6 (1.1-1.5); ALKALINE PHOSPHATASE 76 IU/L (46-116); ANION GAP 12 (8-16); ASPARTATE AMINO TRANSFERASE 19 U/L (10-37); BILIRUBIN,TOTAL 0.2 MG/DL (0.1-1.0); BLOOD UREA NITROGEN 63 MG/DL (7-18); BUN/CREATININE RATIO 15.2 (6.6-38.0); CALCIUM 8.1 MG/DL (8.5-10.1); CHLORIDE 104 MMOL/L (99-107); CREATININE 4.14 MG/DL (0.40-0.90); GLUCOSE 141 MG/DL (70-104); MAGNESIUM 2.4 MG/DL (1.5-2.4); PHOSPHORUS 6.6 MG/DL (2.3-4.5); POTASSIUM 4.2 MMOL/L (3.5-5.1); SODIUM 137 MMOL/L (135-145); TOTAL CARBON DIOXIDE 21.3 MMOL/L (24-32); TOTAL PROTEIN 5.8 G/DL (6.4-8.2); eGFR 11 ML/MIN
[2021-04-05] MEDS ORDERED: pantoprazole 40 MG vial IV SCH (08:00)
--- NOTE | 2021-04-05 08:22 | NUR ---
protonix will not scan contacted pharmacy. spoke with Bertha Lara. Per Jane, protonix dose correct vial, however due to it not scanning and necessity to waste half the dose of the vial, pharmacy has to mix the dose and will notify this nurse when it is ready. no s/sx GI distress.
[2021-04-05] MEDS: hydrALAZINE 25 MG tablet PO SCH ×3 (08:25→20:23)
[2021-04-05] MEDS: isosorbide mononitrate 30mg tab.SR.24H PO SCH ×2 (08:25→20:23)
[2021-04-05] MEDS: labetalol 100mg tablet PO SCH ×2 (08:25→20:23)
[2021-04-05] MEDS: lisinopril 10 MG tablet PO SCH (08:25)
[2021-04-05] MEDS: buPROPion SR 150mg tablet PO SCH ×2 (08:25→20:23)
[2021-04-05] MEDS: furosemide 20 MG/2 ML vial IV SCH ×2 (08:25→20:22)
[2021-04-05] MEDS: K and/or MAG REPLACEMENT MC SCH ×2 (08:31→20:28)
[2021-04-05] MEDS: pantoprazole 40 MG vial IV SCH (10:28)
[2021-04-05 11:00] VITALS: BP 133/83
[2021-04-05 15:00] VITALS: BP 132/77
[2021-04-05 18:00] VITALS: BP 154/92
--- NOTE | 2021-04-05 18:22 | NUR ---
Patient in room PCU 3023. I have received report from Hortensia HOLMAN and had the opportunity to ask questions and assume patient care.
--- NOTE | 2021-04-05 18:28 | NUR ---
Problems reprioritized. Patient report given, questions answered & plan of care reviewed with Brandyn HOLMAN. pt sitting up in bed, breathing easy, no s/sx acute distress
[2021-04-05] MEDS: polyethylene glycol 3350 17gm powd pack PO SCH (20:22)
[2021-04-05 22:00] VITALS: BP 144/86
[2021-04-06 02:00] VITALS: BP 136/85
--- NOTE | 2021-04-06 06:00 | NUR ---
Patient in room PCU 3023. I have received report from Brandyn HOLMAN and had the opportunity to ask questions and assume patient care. Patient awake, introduced myself to pt, cleaned bedside table and updated the board.
--- NOTE | 2021-04-06 06:05 | NUR ---
Problems reprioritized. Patient report given, questions answered & plan of care reviewed with Whitney RN.
[2021-04-06 07:15] VITALS: BP 140/84
[2021-04-06 07:56] LABS: BASOPHILS # (AUTO) 0.1 X10'3 (0-0.2); BASOPHILS % (AUTO) 0.8 % (0-1); EOSINOPHILS # (AUTO) 0.1 X10'3 (0-0.9); EOSINOPHILS % (AUTO) 1.3 % (0-6); HEMOGLOBIN 7.1 g/dl (12.0-16.0); LYMPHOCYTES # (AUTO) 0.7 X10'3 (1.1-4.8); LYMPHOCYTES % (AUTO) 9.7 % (21-51); MEAN CORPUSCULAR HEMOGLOBIN 28.8 PG (27.0-31.0); MEAN CORPUSCULAR HGB CONC 32.9 g/dL (33.0-36.5); MEAN CORPUSCULAR VOLUME 87.5 FL (78-98); MEAN PLATELET VOLUME 5.9 FL (7.4-10.4); MONOCYTES # (AUTO) 0.7 X10'3 (0-0.9); MONOCYTES % (AUTO) 9.2 % (2-12); NEUTROPHILS # (AUTO) 5.7 X10'3 (1.8-7.7); PLATELET COUNT 321 X10'3 (140-440); RED BLOOD COUNT 2.47 X10'6 (4.20-5.60); RED CELL DISTRIBUTION WIDTH 17.1 % (11.5-14.5); WHITE BLOOD COUNT 7.2 X10'3 (4.5-11.0)
[2021-04-06] MEDS: K and/or MAG REPLACEMENT MC SCH ×2 (08:00→20:00)
[2021-04-06 08:06] LABS: HEMATOCRIT 21.6 % (35.0-45.0)
[2021-04-06 08:15] LABS: ALANINE AMINOTRANSFERASE 21 U/L (12-78); ALBUMIN 1.9 G/DL (3.4-5.0); ALBUMIN/GLOBULIN RATIO 0.5 (1.1-1.5); ALKALINE PHOSPHATASE 70 IU/L (46-116); ANION GAP 13 (8-16); ASPARTATE AMINO TRANSFERASE 16 U/L (10-37); BILIRUBIN,TOTAL 0.2 MG/DL (0.1-1.0); BLOOD UREA NITROGEN 68 MG/DL (7-18); BUN/CREATININE RATIO 15.5 (6.6-38.0); CALCIUM 7.9 MG/DL (8.5-10.1); CHLORIDE 104 MMOL/L (99-107); CREATININE 4.39 MG/DL (0.40-0.90); GLUCOSE 152 MG/DL (70-104); MAGNESIUM 2.5 MG/DL (1.5-2.4); PHOSPHORUS 7.6 MG/DL (2.3-4.5); POTASSIUM 4.5 MMOL/L (3.5-5.1); SODIUM 138 MMOL/L (135-145); TOTAL CARBON DIOXIDE 20.9 MMOL/L (24-32); TOTAL PROTEIN 5.6 G/DL (6.4-8.2); eGFR 10 ML/MIN
[2021-04-06] MEDS: pantoprazole 40 MG vial IV SCH (08:20)
[2021-04-06] MEDS: buPROPion SR 150mg tablet PO SCH ×2 (08:21→20:27)
[2021-04-06] MEDS: furosemide 20 MG/2 ML vial IV SCH ×2 (08:21→20:29)
[2021-04-06] MEDS: labetalol 100mg tablet PO SCH ×2 (08:21→20:27)
[2021-04-06] MEDS: isosorbide mononitrate 30mg tab.SR.24H PO SCH ×2 (08:21→20:27)
[2021-04-06] MEDS: hydrALAZINE 25 MG tablet PO SCH ×3 (08:21→20:28)
[2021-04-06] MEDS: lisinopril 10 MG tablet PO SCH (08:21)
[2021-04-06] MEDS ORDERED: PEG 3350/Na sulf,bicarb,Cl/KCl oral sol 4 liter bottle PO ONE (10:35)
[2021-04-06 11:27] VITALS: BP 133/73
[2021-04-06 16:54] VITALS: BP 131/76
[2021-04-06 18:00] VITALS: BP 160/97
--- NOTE | 2021-04-06 18:15 | NUR ---
Patient in room PCU 3023. I have received report from MANDA Olson and had the opportunity to ask questions and assume patient care.
[2021-04-06] MEDS: polyethylene glycol 3350 17gm powd pack PO SCH (20:28)
[2021-04-06 22:00] VITALS: BP 136/82
[2021-04-07] VITALS (11 sets, daily range): BP systolic 103–154; BP diastolic 65–99
--- NOTE | 2021-04-07 06:00 | NUR ---
Patient in room PCU 3023. I have received report from Dru HOLMAN and had the opportunity to ask questions and assume patient care.
--- NOTE | 2021-04-07 06:03 | NUR ---
Problems reprioritized. Patient report given, questions answered & plan of care reviewed with MANDA Olson.
[2021-04-07 07:25] LABS: BASOPHILS # (AUTO) 0.1 X10'3 (0-0.2); BASOPHILS % (AUTO) 0.9 % (0-1); EOSINOPHILS # (AUTO) 0.1 X10'3 (0-0.9); EOSINOPHILS % (AUTO) 1.4 % (0-6); HEMOGLOBIN 7.6 g/dl (12.0-16.0); LYMPHOCYTES # (AUTO) 0.8 X10'3 (1.1-4.8); MEAN CORPUSCULAR HEMOGLOBIN 28.5 PG (27.0-31.0); MEAN CORPUSCULAR HGB CONC 32.9 g/dL (33.0-36.5); MEAN CORPUSCULAR VOLUME 86.4 FL (78-98); MEAN PLATELET VOLUME 5.9 FL (7.4-10.4); MONOCYTES # (AUTO) 0.6 X10'3 (0-0.9); MONOCYTES % (AUTO) 9.8 % (2-12); NEUTROPHILS # (AUTO) 4.6 X10'3 (1.8-7.7); NEUTROPHILS % (AUTO) 74.9 % (42-75); PLATELET COUNT 340 X10'3 (140-440); RED BLOOD COUNT 2.67 X10'6 (4.20-5.60); RED CELL DISTRIBUTION WIDTH 16.9 % (11.5-14.5); WHITE BLOOD COUNT 6.1 X10'3 (4.5-11.0)
[2021-04-07 07:37] LABS: ALANINE AMINOTRANSFERASE 19 U/L (12-78); ALBUMIN/GLOBULIN RATIO 0.6 (1.1-1.5); ALKALINE PHOSPHATASE 73 IU/L (46-116); ANION GAP 14 (8-16); ASPARTATE AMINO TRANSFERASE 17 U/L (10-37); BILIRUBIN,TOTAL 0.2 MG/DL (0.1-1.0); BLOOD UREA NITROGEN 58 MG/DL (7-18); BUN/CREATININE RATIO 15.2 (6.6-38.0); CALCIUM 8.3 MG/DL (8.5-10.1); CHLORIDE 107 MMOL/L (99-107); CREATININE 3.81 MG/DL (0.40-0.90); GLUCOSE 75 MG/DL (70-104); MAGNESIUM 2.3 MG/DL (1.5-2.4); PHOSPHORUS 6.9 MG/DL (2.3-4.5); POTASSIUM 4.3 MMOL/L (3.5-5.1); SODIUM 142 MMOL/L (135-145); TOTAL CARBON DIOXIDE 21.3 MMOL/L (24-32); TOTAL PROTEIN 5.6 G/DL (6.4-8.2); eGFR 12 ML/MIN
[2021-04-07 07:57] LABS: PLATELET ESTIMATE NORMAL
[2021-04-07 07:58] LABS: ANISOCYTOSIS 1+; MICROCYTOSIS 1+; POIKILOCYTOSIS FEW; POLYCHROMASIA 1+
[2021-04-07] MEDS: K and/or MAG REPLACEMENT MC SCH ×2 (08:00→20:00)
[2021-04-07] MEDS: lisinopril 10 MG tablet PO SCH (08:32)
[2021-04-07] MEDS: labetalol 100mg tablet PO SCH ×2 (08:32→20:27)
[2021-04-07] MEDS: hydrALAZINE 25 MG tablet PO SCH ×3 (08:33→20:28)
[2021-04-07] MEDS: pantoprazole 40mg Tablet.DR PO SCH (08:33)
[2021-04-07] MEDS: buPROPion SR 150mg tablet PO SCH ×2 (08:34→20:28)
[2021-04-07] MEDS: isosorbide mononitrate 30mg tab.SR.24H PO SCH ×2 (08:34→20:28)
[2021-04-07] MEDS: furosemide 20 MG/2 ML vial IV SCH ×2 (08:34→20:29)
[2021-04-07] MEDS ORDERED: MIDAZolam 1 MG/ML 5ML VIAL ONE (12:03)
[2021-04-07] MEDS ORDERED: fentaNYL/PF 50MCG/1 ML 2ML syringe ONE (12:03)
--- NOTE | 2021-04-07 14:15 | NUR ---
Patient returned to rom. Patient A/O X3, VSS 138/62 HR 70. Patient is in bed appears relaxed and able to make needs known. Patient had a food tray at bedside and was eating. Nurse that escorted patient back into room gave report. No active bleeds, One rect Pulp removed. Patient tolerated well and is in gd spirits.
--- NOTE | 2021-04-07 18:30 | NUR ---
Patient in room PCU 3023. I have received report from Whitney HOLMAN and had the opportunity to ask questions and assume patient care.
[2021-04-07] MEDS: polyethylene glycol 3350 17gm powd pack PO SCH (20:50)
[2021-04-08 02:00] VITALS: BP 126/76
--- NOTE | 2021-04-08 06:27 | NUR ---
Problems reprioritized. Patient report given, questions answered & plan of care reviewed with Lola HOLMAN.
[2021-04-08 07:00] VITALS: BP 155/82
[2021-04-08 07:36] LABS: ALANINE AMINOTRANSFERASE 18 U/L (12-78); ALBUMIN/GLOBULIN RATIO 0.5 (1.1-1.5); ALKALINE PHOSPHATASE 71 IU/L (46-116); ANION GAP 13 (8-16); ASPARTATE AMINO TRANSFERASE 16 U/L (10-37); BASOPHILS # (AUTO) 0.1 X10'3 (0-0.2); BASOPHILS % (AUTO) 0.9 % (0-1); BILIRUBIN,TOTAL 0.2 MG/DL (0.1-1.0); BLOOD UREA NITROGEN 59 MG/DL (7-18); BUN/CREATININE RATIO 14.9 (6.6-38.0); CHLORIDE 107 MMOL/L (99-107); CREATININE 3.97 MG/DL (0.40-0.90); EOSINOPHILS # (AUTO) 0.1 X10'3 (0-0.9); EOSINOPHILS % (AUTO) 1.2 % (0-6); GLUCOSE 156 MG/DL (70-104); HEMATOCRIT 23.1 % (35.0-45.0); HEMOGLOBIN 7.5 g/dl (12.0-16.0); LYMPHOCYTES # (AUTO) 0.7 X10'3 (1.1-4.8); LYMPHOCYTES % (AUTO) 10.8 % (21-51); MAGNESIUM 2.3 MG/DL (1.5-2.4); MEAN CORPUSCULAR HEMOGLOBIN 28.3 PG (27.0-31.0); MEAN CORPUSCULAR HGB CONC 32.5 g/dL (33.0-36.5); MEAN CORPUSCULAR VOLUME 87.2 FL (78-98); MONOCYTES # (AUTO) 0.8 X10'3 (0-0.9); MONOCYTES % (AUTO) 11.2 % (2-12); NEUTROPHILS # (AUTO) 5.2 X10'3 (1.8-7.7); NEUTROPHILS % (AUTO) 75.9 % (42-75); PHOSPHORUS 7.4 MG/DL (2.3-4.5); PLATELET COUNT 358 X10'3 (140-440); POTASSIUM 4.5 MMOL/L (3.5-5.1); RED BLOOD COUNT 2.65 X10'6 (4.20-5.60); RED CELL DISTRIBUTION WIDTH 16.9 % (11.5-14.5); SODIUM 141 MMOL/L (135-145); TOTAL CARBON DIOXIDE 21.5 MMOL/L (24-32); TOTAL PROTEIN 5.7 G/DL (6.4-8.2); WHITE BLOOD COUNT 6.8 X10'3 (4.5-11.0); eGFR 12 ML/MIN
[2021-04-08] MEDS: pantoprazole 40mg Tablet.DR PO SCH (07:39)
[2021-04-08] MEDS: furosemide 20 MG/2 ML vial IV SCH (07:39)
[2021-04-08] MEDS: hydrALAZINE 25 MG tablet PO SCH ×2 (07:40→13:01)
[2021-04-08] MEDS: isosorbide mononitrate 30mg tab.SR.24H PO SCH (07:40)
[2021-04-08] MEDS: labetalol 100mg tablet PO SCH (07:40)
[2021-04-08] MEDS: buPROPion SR 150mg tablet PO SCH (07:40)
[2021-04-08] MEDS: lisinopril 10 MG tablet PO SCH (07:41)
[2021-04-08] MEDS: K and/or MAG REPLACEMENT MC SCH (08:00)
[2021-04-08] MEDS ORDERED: FERR324T4 PO (09:12)
[2021-04-08 11:00] VITALS: BP 156/84
--- NOTE | 2021-04-08 11:51 | NUR ---
Initial: Pt admit DX acute blood loss anemia, gastritis, hiatal hernia, CHF, HTN, and CKD V per MD note. S/p colonoscopy and golytely prior to procedure per EMR. Pt PO 100% avg renal diet meeting needs. LBM 5/8 x4 s/p prep. Phos 7.4 and pt to follow-up at [facility] as outpatient per MD note; may benefit from phos binder as medically indicated. Noted -7kg wt loss w/ positive fluid balance likely error. Will continue to monitor. Rec: 1. continue renal diet 2. consider phos binder w/ meals as medically indicated; Phos 7.4 today 3. routine bowel care 4. weekly wts Addendum: 04/08/21 at [address] Amended: Links added.
[2021-04-08 13:01] VITALS: BP_SYST 156
--- NOTE | 2021-04-08 13:37 | NUR ---
Patient was discharged home at 1330. Patient reviewed packet before signing and being sent home with patient. PIV removed with cannula intact, tele monitoring D/C'd, Patient has F?U appt with Dr. Hathaway scheduled for 04/24, and was wheeled down by staff and left via private vehicle with friend.
== END 2021-04-08 13:25 | disposition home or self-care (01) | DRG 291 ==
LOC: ER 11:03 → ED HOLD 14:47 → PCU 3S 18:50
PROVIDERS: ADMIT Family Medicine; ATTEND Family Medicine
PROC: 30233N1 Transfusion of Nonautologous Red Blood Cells into Peripheral Vein, Percutaneous Approach (ICD-10-PCS; principal; 2021-04-03)
PROC: 0DB98ZX Excision of Duodenum, Via Natural or Artificial Opening Endoscopic, Diagnostic (ICD-10-PCS; 2021-04-04)
PROC: 0DB68ZX Excision of Stomach, Via Natural or Artificial Opening Endoscopic, Diagnostic (ICD-10-PCS; 2021-04-04)
PROC: 0DBP8ZZ Excision of Rectum, Via Natural or Artificial Opening Endoscopic (ICD-10-PCS; 2021-04-07)
DX: I13.2 Hypertensive heart and chronic kidney disease with heart failure and with stage 5 chronic kidney disease, or end stage renal disease (principal); I50.43 Acute on chronic combined systolic (congestive) and diastolic (congestive) heart failure; N17.9 Acute kidney failure, unspecified; N18.5 Chronic kidney disease, stage 5; D62 Acute posthemorrhagic anemia; F32.9 Major depressive disorder, single episode, unspecified; K62.1 Rectal polyp; R19.5 Other fecal abnormalities; K31.89 Other diseases of stomach and duodenum; D63.1 Anemia in chronic kidney disease; K57.30 Diverticulosis of large intestine without perforation or abscess without bleeding; K58.9 Irritable bowel syndrome, unspecified; I34.0 Nonrheumatic mitral (valve) insufficiency; E78.5 Hyperlipidemia, unspecified; E87.6 Hypokalemia; K29.70 Gastritis, unspecified, without bleeding; K44.9 Diaphragmatic hernia without obstruction or gangrene; Z85.41 Personal history of malignant neoplasm of cervix uteri; Z87.891 Personal history of nicotine dependence; Z79.899 Other long term (current) drug therapy; Z90.49 Acquired absence of other specified parts of digestive tract
CPT/HCPCS: 36415; 36430; 43239; 45380; 45385; 45390; 71045; 80053; 82272; 83735; 83880; 84100; 84484; 85008; 85025; 85610; 85730; 86885; 86900; 86901; 86920; 87081; 93005; 96374; 99152; 99153; 99285; A4620; C9113; G0378; J1940; J2250; J3010; J7040; P9016

== ENCOUNTER 2021-04-25 10:35 | Emergency (ER) | payer BC ==
[~2021-04-25] VITALS: Ht 149.9 cm; Wt 52.3 kg
[~2021-04-25 10:35] MED LIST changes: -CYCL-1 PO; +FERR324T4 PO; +LISI10TA27 PO; -ZAR2.5T PO
[2021-04-25 11:33] LABS: BASOPHILS # (AUTO) 0.1 X10'3 (0-0.2); BASOPHILS % (AUTO) 0.9 % (0-1); EOSINOPHILS # (AUTO) 0.2 X10'3 (0-0.9); EOSINOPHILS % (AUTO) 2.6 % (0-6); HEMATOCRIT 24.2 % (35.0-45.0); HEMOGLOBIN 7.9 g/dl (12.0-16.0); LYMPHOCYTES # (AUTO) 0.8 X10'3 (1.1-4.8); LYMPHOCYTES % (AUTO) 9.6 % (21-51); MEAN CORPUSCULAR HEMOGLOBIN 28.9 PG (27.0-31.0); MEAN CORPUSCULAR HGB CONC 32.6 g/dL (33.0-36.5); MEAN CORPUSCULAR VOLUME 88.6 FL (78-98); MEAN PLATELET VOLUME 6.2 FL (7.4-10.4); MONOCYTES # (AUTO) 0.8 X10'3 (0-0.9); MONOCYTES % (AUTO) 9.7 % (2-12); NEUTROPHILS # (AUTO) 6.2 X10'3 (1.8-7.7); NEUTROPHILS % (AUTO) 77.2 % (42-75); PLATELET COUNT 345 X10'3 (140-440); RED BLOOD COUNT 2.73 X10'6 (4.20-5.60); RED CELL DISTRIBUTION WIDTH 18.4 % (11.5-14.5)
[2021-04-25 11:51] LABS: ALANINE AMINOTRANSFERASE 15 U/L (12-78); ALBUMIN 2.6 G/DL (3.4-5.0); ALBUMIN/GLOBULIN RATIO 0.7 (1.1-1.5); ALKALINE PHOSPHATASE 98 IU/L (46-116); ANION GAP 14 (8-16); ASPARTATE AMINO TRANSFERASE 20 U/L (10-37); BILIRUBIN,TOTAL 0.4 MG/DL (0.1-1.0); BLOOD UREA NITROGEN 51 MG/DL (7-18); BUN/CREATININE RATIO 12.3 (6.6-38.0); CALCIUM 7.8 MG/DL (8.5-10.1); CHLORIDE 109 MMOL/L (99-107); CREATININE 4.13 MG/DL (0.40-0.90); GLUCOSE 94 MG/DL (70-104); POTASSIUM 3.6 MMOL/L (3.5-5.1); SODIUM 142 MMOL/L (135-145); TOTAL CARBON DIOXIDE 19.4 MMOL/L (24-32); TOTAL PROTEIN 6.4 G/DL (6.4-8.2); eGFR 11 ML/MIN
[2021-04-25 11:59] LABS: MAGNESIUM 2.6 MG/DL (1.5-2.4)
[2021-04-25] MEDS ORDERED: lisinopril 10 MG tablet PO ONE (12:35)
[2021-04-25] MEDS ORDERED: hydrALAZINE 25 MG tablet PO ONE (12:35)
[2021-04-25] MEDS ORDERED: isosorbide mononitrate 30mg tab.SR.24H PO ONE (12:35)
[2021-04-25 13:41] VITALS: BP 177/111
== END 2021-04-25 13:46 | disposition home or self-care (01) ==
LOC: ER 10:35
DX: I13.0 Hypertensive heart and chronic kidney disease with heart failure and stage 1 through stage 4 chronic kidney disease, or unspecified chronic kidney disease (principal); N18.9 Chronic kidney disease, unspecified; Z86.2 Personal history of diseases of the blood and blood-forming organs and certain disorders involving the immune mechanism; Z72.89 Other problems related to lifestyle; Z60.2 Problems related to living alone; Z79.899 Other long term (current) drug therapy
CPT/HCPCS: 36415; 71045; 80053; 83735; 83880; 84484; 85025; 93005; 99285